=== PATIENT | female | born 1950 | race Caucasian/White ===

== ENCOUNTER 2025-04-06 15:47 | Emergency (ER) | payer MEDICARE, SELFPAY ==
[2025-04-06 15:50] VITALS: BP 182/97
[2025-04-06] MEDS: DUONEB 3 ML INH (16:48)
[2025-04-06 18:09] VITALS: BP 169/89
--- NOTE | 2025-04-06 21:12 | ED.MUSCINJ ---
HPI-Injury
General
Chief Complaint: Fall
Source: patient and spouse
Exam Limitations: none
Time Seen by Provider: 04/06/25 16:36
Nursing documentation reviewed up to this point in time: agreed with
History of Present Illness-Injury
Is this injury a work related problem?: No
Is pt an associate of [facility]/[place]?: No
Initial Injury comments:
Patient to ED after trip and fall at home. SHe denies hitting her head. SHe has pain to left clavicle, bruising to left ant. chest. Fall occurred 2 days ago. Brought to ED by spouse for eval.
Past History
Past History
ED Past Medical History: COPD, HTN and Hypercholesterolemia
Review of Systems
Review of Systems
Allergies reviewed?: Yes
All Other Systems: ROS reviewed and negative except as documented in HPI and ROS
Constitutional: Reports no symptoms
EENT: Reports no symptoms
Respiratory: Reports no symptoms (COPD. On continuous O2)
Cardiac: Reports no symptoms
ABD/GI: Reports no symptoms
Musculoskeletal: Reports joint pain (pain to left clavicle)
Skin: Reports other (bruising left ant chest.)
Neurological: Reports no symptoms
Psychiatric: Reports no symptoms
Musculoskeletal Injury Exam
Musculoskeletal Injury Exam
Left clavicle:
Pain with Movement?: Moderate
Tender to palpation?: Moderate
Soft tissue swelling?: Mild
External deformity and angulation?: None
Joint effusion?: None
Contusion?: Moderate
Hematoma-local bleeding into tissue?: Moderate
Strain- Sprain- Tear (Connective tissue injury)?: Moderate
Crepitus with movement?: No
Joint instability?: No
Malalignment/deformity?: No
Range of motion: Full
Distal skin color and temperature: normal-warm & good color
Capillary Refill: normal
Normal distal neurovascular exam?: Yes
Left Anterior Chest:
Pain with Movement?: Moderate
Tender to palpation?: Moderate
Soft tissue swelling?: Mild
External deformity and angulation?: None
Joint effusion?: None
Contusion?: Moderate
Hematoma-local bleeding into tissue?: Moderate
Strain- Sprain- Tear (Connective tissue injury)?: None
Crepitus with movement?: No
Joint instability?: No
Malalignment/deformity?: No
Range of motion: Limited
Distal skin color and temperature: normal-warm & good color
Capillary Refill: normal
Normal distal neurovascular exam?: Yes
Phy Exam
General Physical Exam
General Presentation: well appearing and mild distress
General age: appears stated age
General Skin: warm and dry
General Habitus: normal
General Mental: alert
Cardiovascular Exam
Cardiovascular Exam: regular rate/rhythm and no edema
Pulmonary Exam
Pulmonary Exam: no respiratory distress
Chest Wall: Left anterior: tenderness
Gastrointestinal Exam
Gastrointestinal Exam: normal bowel sounds, non tender, soft, no organomegaly, no pulsatile mass, non distended and no cva tenderness
Neurological Exam
Neurological Exam: alert, oriented x3, CN II-XII intact, no motor deficits, no sensory deficits and speech normal
[place] Coma Scale
Eye Opening: Spontaneous
Verbal Response: Oriented
Motor Response: Obeys Commands
GCS Total Score: 15
Musculoskeletal Exam
Musculoskeletal Exam: full ROM, neuro vasc intact and other (Full nonpainful ROM head/neck)
Skin Exam
Skin Exam: warm/dry and no rash
Psychiatric Exam
Psychiatric Exam: normal mood/affect
Injury Course
Orders/Labs/Results
Orders:
Orders
04/06/25 16:44
Ipratropium/Albuterol Sulfate [Duoneb] 3 ml INH R NOW STA
Clavicle, Left Complete CR [CR Clavicle - Left Complete ] Urgent
Comment:
Reason For Exam: fall
Ribs, Left 3 View W/PA Chest CR [CR Ribs-left 3 Vw W/pa Chest] Urgent
Comment:
Reason For Exam: fall
*Radiology
Radiology exam reviewed: radiology read reviewed
*Pulse Oximetry
SaO2: 94
Nasal Cannula flow liters per minute: 2
Patient hypoxic: no
*Critical Care Note
Total Time (30-74mins, 75-104mins- exclusive of procedures): Not Applicable
Update Note
Update Note:
Patient to ED after trip and fall at home 2 days ago. No head injury. Bruising to left clavicle, left ant. chest. No fractures noted on xray. Wll continue to ice, tylenol prn, close follow up with PCP. Given instructions on s/s to return to ED
and she is agreeable to plan.
ED Attending Note
-
Portions of this chart may have been created with voice recognition software.� Occasional wrong word or��sound alike� substitutions may have occurred due to the inherent limitations of voice recognition software.
Discharge Plan
Departure
Patient Disposition: Home (Routine Discharge)
Date of Disposition: 04/06/25
Time of Disposition: 18:09
Patient with high blood pressure during this ER visit?: No
Condition: Good
Covid-19: Not Applicable
Discharge Problem:
Chest wall contusion
Instructions: Contusion (DC), Preventing falls in adults, Cold therapy for pain
Prescriptions:
New
acetaminophen-codeine 300-15 mg tablet
1 tab PO Q4H PRN (Reason: Pain) Qty: 10 0RF
Referrals:
Jonathon Solitario MD [Family Provider, Family Practice] - Tomorrow
Interventions
Interventions:
*Risk Screen - Suicide Last Done: 04/06/25 15:50
*General Assessment Last Done: 04/06/25 15:50
*Neglect/Abuse Screening Last Done: 04/06/25 15:50
*ED- Fall Risk Assessment Last Done: 04/06/25 18:09
*ED COVID-19 Vaccine History Last Done: 04/06/25 18:09
*ED Influenza Vaccine History Last Done: 04/06/25 18:09
*Nursing Disposition Last Done: 04/06/25 18:10
ED-Musculoskeletal Assessment Last Done: 04/06/25 18:10
ED- Neurological Assessment Last Done: 04/06/25 18:10
ED-Skin Assessment Last Done: 04/06/25 18:10
Discharge Date and Time
Discharge Date/Time: 04/06/25 18:16
Print Language: [place]
== END 2025-04-06 18:16 | disposition home or self-care (01) ==
LOC: EMR 15:47
PROVIDERS: EMERGENCY PHYSICIAN Emergency Medicine; FAMILY PHYSICIAN Family Medicine
DX: S20.212A Contusion of left front wall of thorax, initial encounter (principal); M25.512 Pain in left shoulder; W01.0XXA Fall on same level from slipping, tripping and stumbling without subsequent striking against object, initial encounter; E78.00 Pure hypercholesterolemia, unspecified; J44.9 Chronic obstructive pulmonary disease, unspecified; I10 Essential (primary) hypertension
CPT/HCPCS: 94640; 99284; 71101; 73000